=== PATIENT | female | born 1985 | race African-American/Black ===

== ENCOUNTER 2024-10-11 07:46 | Emergency (ER) | payer MEDICAID ==
[~2024-10-11] VITALS: Ht 165.1 cm; Wt 81.6 kg
[2024-10-11 07:52] VITALS: O2SAT 99
[2024-10-11] MEDS: ACETAMINOPHEN 325MG TABLET PO ONE (09:29)
[2024-10-11] MEDS ORDERED: IBUP-2029 MT (09:43)
[2024-10-11 10:11] VITALS: BP 142/80; PULSE 79; RESP 18; TEMP 36.8; O2SAT 99
== END 2024-10-11 10:12 | disposition home or self-care (01) ==
LOC: ER 07:46
DX: S00.83XA Contusion of other part of head, initial encounter (principal); M54.2 Cervicalgia; Y04.0XXA Assault by unarmed brawl or fight, initial encounter; Y93.89 Activity, other specified; Y92.89 Other specified places as the place of occurrence of the external cause; Y99.8 Other external cause status
CPT/HCPCS: 70486; 99284